=== PATIENT | female | born 1985 | race Asian ===

== ENCOUNTER 2017-05-24 12:15 | Emergency (ER) | payer MEDICAID ==
[~2017-05-24] VITALS: Ht 165.1 cm; Wt 79.9 kg
[2017-05-24 12:23] VITALS: BP 124/71
--- NOTE | 2017-05-24 12:30 | NUR ---
L&D called for FHT in triage---
--- NOTE | 2017-05-24 12:47 | NUR ---
fht 164
--- NOTE | 2017-05-24 13:06 | NUR ---
PATIENT CALLED TO A BED, NO ANSWER. ERMD MADE AWARE
[2017-05-24 13:08] LABS: APPEARANCE,URINE TURBID (CLEAR); BILIRUBIN,URINE NEGATIVE (NEGATIVE); BLOOD, URINE 2+ (NEGATIVE); COLOR,URINE YELLOW (YELLOW); LEUKOCYTE ESTERASE ,URINE 2+ (NEGATIVE); NITRITE, URINE NEGATIVE (NEGATIVE); UGLUCOSE NEGATIVE (NEGATIVE)
[2017-05-24 13:38] LABS: RBC,URINE 11-20 (MOD) /HPF (0-5)
== END 2017-05-24 13:06 | disposition left against medical advice (07) ==
LOC: MED 12:15
DX: O26.852 Spotting complicating pregnancy, second trimester (principal); Z53.21 Procedure and treatment not carried out due to patient leaving prior to being seen by health care provider
CPT/HCPCS: 81001; 81025; 87086